=== PATIENT | female | born 1950 ===

== ENCOUNTER 2024-07-15 17:07 | Outpatient (REF) | payer MEDICARE, OTHER, SELFPAY ==
[2024-07-15 22:17] LABS: Abs Immature Grans 0.01 10^3/uL (0.0-0.06); Absolute Basophil Count 0.01 10^3/uL (0.0-0.2); Absolute Eosinophil Count 0.09 10^3/uL (0.0-0.7); Absolute Lymphocyte Count 1.15 10^3/uL (1.2-3.4); Absolute Monocyte Count 0.49 10^3/uL (0.1-0.8); Absolute Neutrophil Count 2.49 10^3/uL (1.2-6.7); Basophils % 0.2 %; Eosinophils % 2.1 %; HCT 39.8 % (36.0-46.0); HGB 13.6 g/dL (11.2-15.7); Immature Grans % 0.2 %; Lymphocytes % 27.1 %; MCH 28.5 pg (27.0-33.0); MCHC 34.2 % (32.0-36.0); MCV 83 fL (80-95); MPV 11.7 fL (8.0-11.0); Monocytes % 11.6 %; Neutrophils % 58.8 %; Platelet Count 223 10^3/uL (130-400); RBC 4.78 10^6/uL (3.93-5.22); RDW 13.3 % (11.7-14.6); RDW-SD 40.7 fL; WBC 4.24 10^3/uL (4.4-10.8)
[2024-07-15 22:35] LABS: ALT 16 U/L (14-59); AST 21 U/L (15-37); Albumin 3.2 g/dL (3.4-5.0); Alkaline Phosphatase 88 U/L (46-116); Anion Gap 11.1 mmol/L (3-11); BUN 7 mg/dL (7-18); Bilirubin, Total 0.33 mg/dL (0.2-1.0); CO2 23.9 mmol/L (21.0-32.0); CREATININE 0.7 mg/dL (0.55-1.02); Chloride 102 mmol/L (98-107); Glucose 111 mg/dL (74-106); Lipase 30 U/L (16-77); Potassium 3.3 mmol/L (3.5-5.1); Sodium 137 mmol/L (136-145); Total Protein 6.7 g/dL (6.4-8.2)
[2024-07-15 22:38] LABS: Calcium 8.1 mg/dL (8.5-10.1)
[2024-07-15 23:03] LABS: WBC Negative HPF (0-5)
[2024-07-15 23:04] LABS: Bacteria Negative HPF (Negative); C & S Indicated? No; Casts Negative LPF (Negative); Crystals Negative HPF (Negative); Epithelial Cells Negative HPF (Negative); Mucus Moderate (Negative); RBC 0-2 HPF (0-2)
== END 2024-07-15 17:08 | disposition home or self-care (01) ==
LOC: NCHCN 17:07
PROVIDERS: Visit Provider Physician Assistant
DX: R10.84 Generalized abdominal pain (principal)
CPT/HCPCS: 80053; 83690; 81015; 85025

== ENCOUNTER 2024-08-01 18:32 | Outpatient (REF) | payer MEDICARE, OTHER, SELFPAY ==
[2024-08-01 22:16] LABS: Anion Gap 7.1 mmol/L (3-11); BUN 9 mg/dL (7-18); CO2 27.9 mmol/L (21.0-32.0); CREATININE 0.7 mg/dL (0.55-1.02); Calcium 8.6 mg/dL (8.5-10.1); Chloride 104 mmol/L (98-107); Glucose 91 mg/dL (74-106); Potassium 3.8 mmol/L (3.5-5.1); Sodium 139 mmol/L (136-145)
[2024-08-04 11:52] LABS: IgA 139 mg/dL (85-499); Interpretation (See Note); Tissue Transglutaminase IgA <4.0 CU (<20.0)
== END 2024-08-01 18:33 | disposition home or self-care (01) ==
LOC: NCHCN 18:32
PROVIDERS: Visit Provider Internal Medicine
DX: R19.7 Diarrhea, unspecified (principal)
CPT/HCPCS: 80048; 82784; 83516

== ENCOUNTER 2024-08-04 16:24 | Outpatient (REF) | payer MEDICARE, OTHER, SELFPAY ==
--- OUTSIDE RECORDS SUMMARY | 2024-08-04 16:26 | XMS_ITS | Continuity of Care Document ---
Author Organization [facility] Address [address] [place] [address] Assessment No assessment recorded. Plan of Treatment Reminders Order Date Submit Date Provider Last Modified By Organization Details Last Modified Time Details Appointments Nurse Visit 024 11:45AM Not available Not available Not available Lab None recorde d. Referral None recorde d. Procedures None recorde d. Surgeries None recorde d. Imaging None recorde d. Medication Orders None recorde d. Patient TargetsNo targets recorded. Patient InstructionsNo instructions recorded. Reason for Referral None Reported. Results Created Date Observation Date Name Description Value Unit Range Abnormal Flag Note LastModifiedBy Organization Detail LastModifiedTime 08/01/20 24 08/01/2024 XR, abdom en, compl ete No observ ation record ed. [email or web address] Not Available 2023 10:36:57 08/03/20 24 08/25/2022 imagi ng/di agnos tic resul t No observ ation record ed. [email or web address] Not Available 08/03 22:51:36 Result Notes None recorded. 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 -rec low-sodi um diet and regular exercise -RTC when she is back in [place] in April, sooner prn. Problem Code: I10; Problem Code Type: ICD-10; MD Celina [address], [place] [address] , [facility] 4 13:48:57 Bone density finding 753769860 Active 2021 Problem Code: M85.80; Problem Code Type: ICD-10; MD Celina [address], [place] [address] , [facility] 4 13:48:57 Fatigue 20576971 Active 2021 Problem Code: R53.83; Problem Code Type: ICD-10; MD Celina [address], [place] [address] , [facility] 4 13:48:57 Cataract 859459386 Active 2021 Problem Code: H26.9; Problem Code Type: ICD-10; MD Celina [address], [place] [address] , [facility] 4 13:48:57 Hypergly cemia 88570443 Completed 202107/25/2022 07/18/20 22 - Comments only - Lenore Sabina ELECTRONIC WIRER - -glc of 113 in February 2022 -A1c today: 5.8% -- resulted after pt left. Called to discuss, rec we drawn venous A1c at next visit confirm diagnosi s of PreDM. -Art Psychotherapist Or Therapist ed on low carbohyd rate diet and exercise Problem Code: R73.9; Problem Code Type: ICD-10; Not Available [facility] 3 05:08:16 Major depressi on, single episode 44482465 Active 2022 Problem Code: F32.9; Problem Code Type: ICD-10; MD Celina [address]Z [address], [address] 4 13:48:57 History of polyp of colon 063418768 Active 2019 Problem Code: Z86.010; Problem Code Type: ICD-10; MD Celina [address]Z [address], [address] 4 13:48:57 Hip joint prosthes is present 765444933 Active 2017 Problem Code: Z96.642; Problem Code Type: ICD-10; MD Celina LOPEZ [address], [address] 4 13:48:57 Vitamin D deficien cy 19945952 Active 2017 Problem Code: E55.9; Problem Code Type: ICD-10; MD Celina LOPEZ Dr, [address] 4 13:48:57 Skin finding 551873163 Active 2017 Problem Code: R23.8; Problem Code Type: ICD-10; MD Celina [address], [place] [address] , [facility] 4 13:48:57 Screenin g for malignan t neoplasm of colon Active 2019 Problem Code: Z12.11; Problem Code Type: ICD-10; MD Celina L[address]Z [address], [address] 4 13:48:57 Dysthymi a 20095434 Active 201606/08/20 22 - Comments only - Lenore Sabina ELECTRONIC WIRER - -stable on citalopr am 20mg qd, rx renewed today Problem Code: F34.1; Problem Code Type: ICD-10; MD Celina [address], [place] [address] , [facility] 4 13:48:57 Insomnia 399603267 Active 2016 Problem Code: G47.00; Problem Code Type: ICD-10; MD Celina [address], [place] [address] , [facility] 4 13:48:57 Intolera nce to lactose 501148104 Active 2021 Problem Code: E73.9; Problem Code Type: ICD-10; MD Celina L[address]Z [address], [address] 4 13:48:57 Migraine 60513242 Active 2021 Problem Code: G43.909; Problem Code Type: ICD-10; MD Celina L[address], [address] 4 13:48:57 Osteoart hritis of multiple joints 487175001 Active 2021 Problem Code: M15.9; Problem Code Type: ICD-10; MD Celina LOPEZ [address], [address] 4 13:48:57 Eczema 77445563 Active 2021 Problem Code: L30.9; Problem Code Type: ICD-10; MD Celina L[address]Z Dr, [address] 4 13:48:57 Abnormal weight loss 616679520 Active 202107/18/20 22 - Comments only - Lenore Muhammad APRN - -wt up 0.4# since last visit -recheck again in 1 mo Problem Code: R63.4; Problem Code Type: ICD-10; MD Celina [address], [place], [address] , [facility] 4 13:48:57 Pain in right hip joint 52297034545 9102 Active 2021 Problem Code: M25.551; Problem Code Type: ICD-10; MD Celina [address], [facility] [address] , [facility] 4 13:48:57 Dysphoni a 01960687 Completed 201906/08/2022 Problem Code: R49.0; Problem Code Type: ICD-10; Not Available [facility] 3 05:08:18 Bone density finding 016007432 Completed 202107/18/2022 Problem Code: M85.9; Problem Code Type: ICD-10; MD Celina [address], [facility] [address] , [facility] 4 13:48:57 Shoulder joint pain 163659963 Completed 202106/08/2022 Problem Code: M25.519; Problem Code Type: ICD-10; Not Available [facility] 3 05:08:19 Elevated blood-pr essure reading without diagnosi s of hyperten negar 720581571 Completed 202107/18/2022 Problem Code: R03.0; Problem Code Type: ICD-10; Not Available [facility] 3 05:08:19 Problem Notes None recorded. Medical Equipment None Reported. Allergies Allergen ID Allergen Name Allergen Category Reaction Reaction Severity Criticality Documentation Date Start Date Code Code System Note Provider Name and Address Organization Details Recorded Time 69025 nickel environme nt,medica tion Not available Not available Not available 09/28/20232021 12349 29 RxNorm Not Available [facility] 3 16:22:08 08108 acetamino phen / oxycodone medicatio n anaphylax is Not available Not available 09/28/20232021 45418 3 RxNorm anaph ylaxi s Not Available [facility] 16:22:09 Medications Name Sig Start Date Stop Date Status Note LastModified by Organization Details LastModified Time estazolam 2 mg tablet Take 1 tablet by mouth once a day as needed 08/15 completed Not Available Not Available Not Available amlodipine 2.5 mg tablet TAKE 1 AND 1/2 TABLET BY MOUTH EVERY EVENING active Not Available Not Available No t Available citalopram 20 mg tablet TAKE 1 TABLET BY MOUTH EVERY DAY active Not Available Not Available No t Available betamethas one dipropiona te 0.05 % topical cream Apply to skin twice a day for 7-10 days 07/04 completed Not Available Not Available Not Available Multivitam in 50 Plus tablet Take 1 tablet by mouth once a day active Not Available Not Available No t Available ADVANCED Calcium 200 mg calcium-20 0 unit tablet 05/23 completed pt no longer takes. Not Available Not Available Not Available Vitals None Recorded Social History Question Answer Notes LastModified by Organizat ion Details LastModified Time Tobacco Smoking Status Former Smoker MILVIA MCNEILL LPN null, [place] - [facility] 05/23/2024 11:05:45 When Did You Quit Smoking? 16+yearssinc elastcigaret te [email or web address] Information not available 05/23/2024 What Was The Date Of Your Most Recent Tobacco Screening? 08/01/2024 [email or web address] Information not available 08/01/2024 Sex: Female Functional Status None recorded. Mental Status None recorded. Family History Nothing Reported Notes:*Problem: Mother (d; 8 0)- Depressive Disorder, Acute Poliomyelitis, Malignant tumor of breast, acute hepatitis, malignant neoplasm of skin, gallstones Father (d; 86) - depressive disorder-bipolar, Alzheimer's Disease, pulmonary emphysems, cataract, alcohol abuse Maternal grandmother (d; 70) - tuberculosis Paternal grandmother (d; 60)- DM Maternal grandfather (d; 94)- maternal tumor of prostate Sister - Migraine Medical History No medical history recorded. Gynecological HistoryNo gynecological history recorded. Obstetrics History GPAL:G 0 P 0 0 0 0 Immunizations Vaccine Type Date Status Provider Name and Address Organization Details Recorded Time Td (adult), 5 Lf tetanus toxoid, preservative free, adsorbed 06/07/2023 completed Not Available [facility] 11/23/2023 19:34:48 zoster recombinant 09/06/[address] [facility] 11/23/2023 19:34:48 SARS-COV-2 (COVID-19) vaccine, UNSPECIFIED 01/24/2021 completed Not Available [facility] 11/23/2023 19:34:48 SARS-COV-2 (COVID-19) vaccine, UNSPECIFIED 04/06/2022 completed Not Available [facility] 11/23/2023 19:34:48 SARS-COV-2 (COVID-19) vaccine, UNSPECIFIED 07/24/2021 completed Not Available [facility] 11/23/2023 19:34:48 SARS-COV-2 (COVID-19) vaccine, UNSPECIFIED 10/12/2021 completed Not Available [facility] 11/23/2023 19:34:48 influenza, unspecified formulation 01/06/2020 completed Not Available [facility] 11/23/2023 19:34:48 influenza, unspecified formulation 09/19/2018 completed Not Available [facility] 11/23/2023 19:34:48 influenza, unspecified formulation 09/23/2020 completed Not Available [facility] 11/23/2023 19:34:48 influenza, unspecified formulation 11/11/2023 completed Not Available [facility] 11/23/2023 19:34:48 Past Encounters Encounter ID Performer Location Encounter Start Date Encounter Closed Date Diagnosis/Indication Diagnosis SNOMED-CT Code Diagnosis ICD10 Code [id number] KRISTIN ANN [address] [address] 07/15/2024 14:26:59 07/15/2024 15:09:51 Diarrhea 76937535 R19.7 Generalize d abdominal pain 182661720 R10.84 [id number] DORA HERNANDEZ MD [address] [address] 08/01/2024 13:22:20 08/01/2024 14:34:21 Abdominal pain 16523132 R10.9 Diarrhea 31172014 R19.7 [id number] RICHARD WALTON LPN [address] [address] 08/04/2024 11:54:06 08/04/2024 13:08:52 Health Concerns Section Related Observation LastModified by Organization Detai ls LastModified Time None Recorded Concern Status LastModified by Organization Details LastModified Time None Recorded Payers Encounter Date Sequence Insurance Name Policy Number Policy Thompson Covered Member ID Thompson Member ID Guarantor Name 08/04/2024 1 [place] [employer] Camila Clements [id number] Camila Clements 08/04/2024 2 [facility] (MEDICARE SUPPLEMENT) Camila Clements [id number] Camila Clements OBGyn Episode No OBEpisode recorded.
--- OUTSIDE RECORDS SUMMARY | 2024-08-04 16:26 | XMS_ITS | Data Portability ---
Author Organization [place] - [facility], [facility] Address [address] [place] [address] Assessment Encounter Date Assessment Date Assessment LastModified by Organization Details LastModified Time 05/23/2024 05/23/2024 Pt presents for right heel pain x 1 month. She is a seasonal resident here in [place] and is followed by her PCP in [place] for preventive care, and for HTN. [email or web address] Not available 05/23/2024 11:05:11 07/15/2024 07/15/2024 Pt with <72 hours of 1-3 episodes of watery diarrhea, associated with generalized abdominal pain. Pt appears fatigued, vitals normal, clinically hydrated. Will obtain labs due to pain and encouraged BRAT diet, fluids, electrolyte drinks, ice pops, ice chips, chicken broth. If not improving in another 36 hours RTC for re-eval. If diarrhea lasts over 7 days can consider stool testing. No empiric abx treatment, there are no red flag signs at this visit. ER for severe pain or dehydration. Monitor for blood in stool. [email or web address] Not available 07/17/2024 11:01:50 Plan of Treatment Reminders Order Date Submit Date Provider Last Modified By Organization Details Last Modified Time Details Appointments Nurse Visit 20 2023 11:45A M Not available Not available Not available Lab lipase, serum or plasma 2023 024 [facility] (Registration ), [address] [place] [address] [place], [address], 07/22/2024 07:11:14 CBC w/ auto diff 2023 024 [facility] (Registration ), [address] [place] [address] [facility] [place], [address], 07/15/2024 22:25:42 CMP, serum or plasma 2023 024 [facility] (Registration ), [address] [place] [address] [place], [address], 07/15/2024 22:42:40 urinalysi s, dipstick [address], [address] [facility], [place], [address], 07/15/2024 15:24:22 microscop ic method, urine 2023 024 [facility] (Registration ), [address] [place] [address] [place], [address], 07/15/2024 15:25:20 O&P (ova & parasites ), stool 2023 024 [facility] (Registration ), [address] [place] [address] [place], [address], 08/04/2024 12:55:22 BMP, serum or plasma 2023 024 [facility] (Registration ), [address] [place] [address] [place], [address], 08/01/2024 15:36:09 celiac disease comprehen sive panel, serum [email or web address] [facility] [address] [facility] (Registration ), [address] [place] [address] [place], [address], 08/01/2024 15:14:43 Referral None recorded. Procedures None recorded. Surgeries None recorded. Imaging XR, abdomen, complete - worsening abdominal pain and stool changes 2023 024 [facility] - Radiology, [address] [place] [address], [address], 08/01/2024 17:17:45 Medication Orders None recorded. Patient TargetsNo targets recorded. Patient Instructions Encounter Date Encounter Id Patient Instructions Last Modified By Organization Details Last Modified Time 05/23/2024 [id number] It was good to see you! I sent the xray order to [facility]. Call them at [phone] just to confirm they have room to see you when you plan to go down. Call us if you have not heard the result within a day. Take care! [email or web address] Not available 05/23/2024 11:27:47 08/01/2024 [id number] Start famotidine (pepcid) 20 mg twice a day Try metamcuil 1-2 teaspooons in a glass of water every night Not available 08/01/2024 14:14:17 Reason for Referral None Reported. Results Created Date Observation Date Name Description Value Unit Range Abnormal Flag Note LastModifiedBy Organization Detail LastModifiedTime 07/15/20 24 07/15/2024 COMPL ETE BLOOD COUNT W/DIF F WBC 4.24 10_3/ uL 4.4-10 .8 low Not Available [address] [place], [address] 07/15/2024 22:25:42 07/15/20 24 07/15/2024 COMPL ETE BLOOD COUNT W/DIF F RBC 4.78 10_6/ uL 3.93-5 .22 normal Not Available [address] [place], [address] 07/15/2024 22:25:42 07/15/2007/15/2024 COMPL ETE BLOOD COUNT W/DIF F HGB 13.6 g/dL 11.2-1 5.7 normal Not Available [address] [place], [address] 07/15/2024 22:25:42 07/15/20 24 07/15/2024 COMPL ETE BLOOD COUNT W/DIF F HCT 39.8 % 36.0-4 6.0 normal Not Available [address] [place], [address] 07/15/2024 22:25:42 07/15/20 24 07/15/2024 COMPL ETE BLOOD COUNT W/DIF F MCV 83 fL 80-95 normal Not Available [address] [place], [address] 07/15/2024 22:25:42 07/15/20 24 07/15/2024 COMPL ETE BLOOD COUNT W/DIF F MCH 28.5 pg 27.0-3 3.0 normal Not Available [address] [place], [address] 07/15/2024 22:25:42 07/15/20 24 07/15/2024 COMPL ETE BLOOD COUNT W/DIF F MCHC 34.2 % 32.0-3 6.0 normal Not Available [address] [place], [address] 07/15/2024 22:25:42 07/15/20 24 07/15/2024 COMPL ETE BLOOD COUNT W/DIF F RDW 13.3 % 11.7-1 4.6 normal Not Available [address] [place], [address] 07/15/2024 22:25:42 07/15/20 24 07/15/2024 COMPL ETE BLOOD COUNT W/DIF F platelet count 223 10_3/ uL 130-40 0 normal Not Available [address] [place], [address] 07/15/2024 22:25:42 07/15/20 24 07/15/2024 COMPL ETE BLOOD COUNT W/DIF F MPV 11.7 fL 8.0-11 .0 high Not Available [address] [place], [address] 07/15/2024 22:25:42 07/15/20 24 07/15/2024 COMPL ETE BLOOD COUNT W/DIF F neutrophils % 58.8 % Not Available [address] [place], [address] 07/15/2024 22:25:42 07/15/20 24 07/15/2024 COMPL ETE BLOOD COUNT W/DIF F lymphocytes % 27.1 % Not Available [address] [place], [address] 07/15/2024 22:25:42 07/15/20 24 07/15/2024 COMPL ETE BLOOD COUNT W/DIF F monocytes % 11.6 % Not Available [address] [place], [address] 07/15/2024 22:25:42 07/15/20 24 07/15/2024 COMPL ETE BLOOD COUNT W/DIF F eosinophils % 2.1 % Not Available [address] [place], [address] 07/15/2024 22:25:42 07/15/20 24 07/15/2024 COMPL ETE BLOOD COUNT W/DIF F basophils % 0.2 % Not Available [address] [place], [address] 07/15/2024 22:25:42 07/15/20 24 07/15/2024 COMPL ETE BLOOD COUNT W/DIF F immature grans % 0.2 % Not Available [address] [place], [address] 07/15/2024 22:25:42 07/15/20 24 07/15/2024 COMPL ETE BLOOD COUNT W/DIF F nucleated RBC 0.0 % 0.0-0. 3 normal Not Available [address] [place], [address] 07/15/2024 22:25:42 07/15/20 24 07/15/2024 COMPL ETE BLOOD COUNT W/DIF F absolute neutrophil count 2.49 10_3/ uL 1.2-6. 7 normal Not Available [address] [place], [address] 07/15/2024 22:25:42 07/15/20 24 07/15/2024 COMPL ETE BLOOD COUNT W/DIF F absolute lymphocyte count 1.15 10_3/ uL 1.2-3. 4 low Not Available [address] [place], [address] 07/15/2024 22:25:42 07/15/20 24 07/15/2024 COMPL ETE BLOOD COUNT W/DIF F absolute monocyte count 0.49 10_3/ uL 0.1-0. 8 normal Not Available [address] [place], [address] 07/15/2024 22:25:42 07/15/20 24 07/15/2024 COMPL ETE BLOOD COUNT W/DIF F absolute eosinophil count 0.09 10_3/ uL 0.0-0. 7 normal Not Available [address] [place], [address] 07/15/2024 22:25:42 07/15/20 24 07/15/2024 COMPL ETE BLOOD COUNT W/DIF F absolute basophil count 0.01 10_3/ uL 0.0-0. 2 normal Not Available [address] [place], [address] 07/15/2024 22:25:42 07/15/20 24 07/15/2024 COMPR EHENS JOHNY METAB OLIC PANEL calcium 8.1 mg/dL 8.5-10 .1 low Not Available [address] [place], [address] 07/15/2024 22:42:39 07/15/20 24 07/15/2024 COMPR EHENS JOHNY METAB OLIC PANEL glucose 111 mg/dL 74-106 high Not Available Thad [address] [place], [address] 07/15/2024 22:42:39 07/15/20 24 07/15/2024 COMPR EHENS JOHNY METAB OLIC PANEL BUN 7 mg/dL 7-18 normal Not Available Thad [address] [place], [address] 07/15/2024 22:42:39 07/15/20 24 07/15/2024 COMPR EHENS JOHNY METAB OLIC PANEL creatinine 0.7 mg/dL 0.55-1 .02 normal Not Available [address] [place], [address] 07/15/2024 22:42:39 07/15/20 24 07/15/2024 COMPR EHENS JOHNY METAB OLIC PANEL estimated GFR 90.70 mL/min /1.73m 2 The eGFR is calcu lated from a serum creat inine using the CKD-E PI 2020 equat ion. Other varia bles requi red for the equat ion are gende r and age; this equat ion does not inclu de a race coeff icien t. This equat ion has simil ar overa ll perfo rmanc e to previ ous equat ions excep t value s may diffe r, in parti cular , in patie nts with highe r value s of eGFR and young er-ag ed adult s. Not Available [address] [place], [address] 07/15/2024 22:42:39 07/15/20 24 07/15/2024 COMPR EHENS JOHNY METAB OLIC PANEL total protein 6.7 g/dL 6.4-8. 2 normal Not Available [address] [place], [address] 07/15/2024 22:42:39 07/15/20 24 07/15/2024 COMPR EHENS JOHNY METAB OLIC PANEL albumin 3.2 g/dL 3.4-5. 0 low Not Available [address] [place], [address] 07/15/2024 22:42:39 07/15/20 24 07/15/2024 COMPR EHENS JOHNY METAB OLIC PANEL bilirubin, total 0.33 mg/dL 0.2-1. 0 normal Not Available [address] [place], [address] 07/15/2024 22:42:39 07/15/20 24 07/15/2024 COMPR EHENS JOHNY METAB OLIC PANEL alk phos 88 U/L 46-116 normal Not Available [address] [place], [address] 07/15/2024 22:42:39 07/15/20 24 07/15/2024 COMPR EHENS JOHNY METAB OLIC PANEL sodium 137 mmol/ L 136-14 5 normal Not Available [address] [place], [address] 07/15/2024 22:42:39 07/15/20 24 07/15/2024 COMPR EHENS JOHNY METAB OLIC PANEL potassium 3.3 mmol/ L 3.5-5. 1 low Not Available [address] [place], [address] 07/15/2024 22:42:39 07/15/20 24 07/15/2024 COMPR EHENS JOHNY METAB OLIC PANEL chloride 102 mmol/ L 98-107 normal Not Available [address] [place], [address] 07/15/2024 22:42:39 07/15/20 24 07/15/2024 COMPR EHENS JOHNY METAB OLIC PANEL CO2 23.9 mmol/ L 21.0-3 2.0 normal Not Available [address] [place], [address] 07/15/2024 22:42:39 07/15/20 24 07/15/2024 COMPR EHENS JOHNY METAB OLIC PANEL anion gap 11.1 mmol/ L 3-11 high Not Available [address] [place], [address] 07/15/2024 22:42:39 07/15/20 24 07/15/2024 COMPR EHENS JOHNY METAB OLIC PANEL AST 21 U/L 15-37 normal Not Available Thad connor [address] [place], [address] 07/15/2024 22:42:39 07/15/20 24 07/15/2024 COMPR EHENS JOHNY METAB OLIC PANEL ALT 16 U/L 14-59 normal Not Available Thad connor [address] [place], [address] 07/15/2024 22:42:39 07/15/2007/15/2024 LIPAS E lipase 30 U/L 16-77 normal Not Available Thad connor [address] [place], [address] 07/15/2024 22:42:40 07/15/20 24 07/15/2024 MICRO SCOPI C FINDI NGS WBC Negati ve hpf 0-5 Not Available Seth vann [address] [place], [address] 07/16/2024 06:12:38 07/15/20 24 07/15/2024 MICRO SCOPI C FINDI NGS RBC 0-2 hpf 0-2 Not Available Thad connor [address] [place], [address] 07/16/2024 06:12:38 07/15/20 24 07/15/2024 MICRO SCOPI C FINDI NGS epithelial cells Negati ve hpf negati ve Not Available [address] [place], [address] 07/16/2024 06:12:38 07/15/20 24 07/15/2024 MICRO SCOPI C FINDI NGS bacteria Negati ve hpf negati ve Not Available [address] [place], [address] 07/16/2024 06:12:38 07/15/20 24 07/15/2024 MICRO SCOPI C FINDI NGS crystals Negati ve hpf negati ve Not Available [address] [place], [address] 07/16/2024 06:12:38 07/15/20 24 07/15/2024 MICRO SCOPI C FINDI NGS mucus Modera te negati ve Not Available [address] [place], [address] 07/16/2024 06:12:38 07/15/20 24 07/15/2024 MICRO SCOPI C FINDI NGS casts Negati ve lpf negati ve Not Available [address] [place], [address] 07/16/2024 06:12:38 07/15/20 24 07/15/2024 MICRO SCOPI C FINDI NGS C S indicated? No Not Available [address] [place], [address] 07/16/2024 06:12:38 07/15/20 24 07/15/2024 urina lysis , dipst ick Leukocytes Negati ve Not Available [address], [place], [address], 07/15/2024 14:52:40 07/15/20 24 07/15/2024 urina lysis , dipst ick Nitrite negati ve Not Available [address], [address], 07/15/2024 14:52:40 07/15/20 24 07/15/2024 urina lysis , dipst ick Urobilinogen .2 Not Available [address], [address], 07/15/2024 14:52:40 07/15/20 24 07/15/2024 urina lysis , dipst ick Protein Negati ve Not Available [address], [address], 07/15/2024 14:52:40 07/15/20 24 07/15/2024 urina lysis , dipst ick pH 6.5 Not Available [address], [address], 07/15/2024 14:52:40 07/15/20 24 07/15/2024 urina lysis , dipst ick Blood Small Not Available [address], [address], 07/15/2024 14:52:40 07/15/20 24 07/15/2024 urina lysis , dipst ick Specific [place] 1.000 Not Available [address], [address], 07/15/2024 14:52:40 07/15/20 24 07/15/2024 urina lysis , dipst ick Ketone Negati ve Not Available [address], [address], 07/15/2024 14:52:40 07/15/20 24 07/15/2024 urina lysis , dipst ick Bilirubin Negati ve Not Available [address], [address], 07/15/2024 14:52:40 07/15/20 24 07/15/2024 urina lysis , dipst ick Glucose Negati ve Not Available [address], [address], 07/15/2024 14:52:40 07/15/20 24 07/15/2024 urina lysis , dipst ick Appearance Clear Not Available [address], [address], 07/15/2024 14:52:40 07/15/20 24 07/15/2024 urina lysis , dipst ick Color Yellow Not Available [address], [address], 07/15/2024 14:52:40 08/01/20 24 08/01/2024 XR ABDOM EN 1V xr abdomen 1V COPLE Y [facility] [place] [id number] RADIO LOGY TRANS CRIPT ION REPOR T ____ Patie nt Name: Daisy DAVIS COLLETTE MRN: Sex: : Age: [birth year] 6 F [birth year] Accou nt: Acces negar: Admit : StayT ype: [id number] 2023 O Order ed: Order ID: Submi tted: Order ing Provi luis antonio: 08/01 15:20 [id number] KT LANDR EY,AL FELISHA Compl eted: Techn ologi st: Resul natalie: 08/01 15:11 MG 08/01 16:11 ____ EXAMI NATIO N: XR ABDOM EN 1V CLINI KOSTAS HISTO RY: Reaso n for Abdom en: Abdom inal Pain Add'l Info: STOOL MATHUR ES TECHN IQUE: AP supin e view of the abdom en KIM RISON : None FINDI NGS: Air with minim al feces is demon strat ed in the colon with no abnor mal dilat ation . No signi fican t findi ng is seen in the small bowel . No mass is visua lized . Degen erati ve disea se is demon strat ed in the spine . IMPRE SSION : No activ e disea se in the abdom en. Thank you for abelardo ng us parti cipat e in the care of this patie nt. If you are a healt h care provi luis antonio and have any quest ions regar ding this repor t, pleas e conta ct the numbe r below . For patie nts who have quest ions pleas e conta ct the healt h care profe ssion al that reque sted your imagi ng first . Elect irlanda collazo ej d by: Gerardo Medeiros MD Radio log[employer] [place] on [phone]), at 2023 4:11 PM Not Available [facility] (Lab) [address] [place] [address], [address], 08/01/2024 16:17:56 08/01/20 24 08/01/2024 BASIC METAB OLIC PANEL calcium 8.6 mg/dL 8.5-10 .[address] [facility] [address] [place] [address] [place], [address] 08/01/2024 22:18:34 08/01/20 24 08/01/2024 BASIC METAB OLIC PANEL glucose 91 mg/dL 74-106 normal Not Available Thad connor [address] [place], [address] 08/01/2024 22:18:34 08/01/20 24 08/01/2024 BASIC METAB OLIC PANEL BUN 9 mg/dL 7-18 normal Not Available Thad connor [address] [place], [address] 08/01/2024 22:18:34 08/01/20 24 08/01/2024 BASIC METAB OLIC PANEL creatinine 0.7 mg/dL 0.55-1 .02 normal Not Available [address] [place], [address] 08/01/2024 22:18:34 08/01/20 24 08/01/2024 BASIC METAB OLIC PANEL estimated GFR 90.70 mL/min /1.73M 2 The eGFR is calcu lated from a serum creat inine using the CKD-E PI 2020 equat ion. Other varia bles requi red for the equat ion are gende r and age; this equat ion does not inclu de a race coeff icien t. This equat ion has simil ar overa ll perfo rmanc e to previ ous equat ions excep t value s may diffe r, in parti cular , in patie nts with highe r value s of eGFR and young er-ag ed adult s. Not Available [address] [place], [address] 08/01/2024 22:18:34 08/01/20 24 08/01/2024 BASIC METAB OLIC PANEL sodium 139 mmol/ L 136-14 5 normal Not Available [address] [place], [address] 08/01/2024 22:18:34 08/01/20 24 08/01/2024 BASIC METAB OLIC PANEL potassium 3.8 mmol/ L 3.5-5. 1 normal Not Available [address] [place], [address] 08/01/2024 22:18:34 08/01/20 24 08/01/2024 BASIC METAB OLIC PANEL chloride 104 mmol/ L 98-107 normal Not Available [address] [place], [address] 08/01/2024 22:18:34 08/01/20 24 08/01/2024 BASIC METAB OLIC PANEL CO2 27.9 mmol/ L 21.0-3 2.0 normal Not Available [address] [place], [address] 08/01/2024 22:18:34 08/01/20 24 08/01/2024 BASIC METAB OLIC PANEL anion gap 7.1 mmol/ L 3-11 normal Not Available [address] [place], [address] 08/01/2024 22:18:34 08/01/20 24 08/04/2024 LAINE C DISEA SE PANEL IgA 139 mg/dL 85-499 Not Available Thad connor [address] [place], [address] 08/04/2024 15:02:37 08/01/20 24 08/04/2024 LAINE C DISEA SE PANEL tissue transglutami nase IgA <4.0 cu <20.0 A negat johny resul t may be due to IgA defic iency and does not rule out laine c disea se. E X09 E E X09 E Negat johny: <20.0 CU E X09 E E X09 E Weak Posit johny: 20.0- 30.0 CU E X09 E E X09 E Posit johny: >30.0 CU Resul ts were obtai jm with the [place] n QUANT A Flash h-tTG IgA chemi lumin escen t immun oassa y. Value s obtai jm with diffe rent manuf actur ers' assay metho ds may not be used inter mathur eably . Not Available [address] [place], [address] 08/04/2024 15:02:37 08/01/20 24 08/04/2024 LAINE C DISEA SE PANEL interpretati on (See Note) Resul t: Negat johny Serol ogy. Laine c disea se unlik vicki. Appro ximat vicki 10% of patie nts with laine c disea se are seron egati ve. Patie nts who are alrea dy adher ing to a glute n-froy e diet may also be seron egati ve. If laine c disea se is highl y clini jay suspe cted, refer ral to gastr oente rolog y for addit ional evalu ation is recom ran d. Test perfo rmed or refer red by [facility] [address], [place] [address] [facility] [address] , [place], [address] 08/04/2024 15:02:37 08/01/20 24 08/01/2024 XR, abdom en, compl [...] Details Recorded Time Tear film insuffic iency 15913550 Active 202106/08/20 22 - Comments only - Lenore Sabina POLITICAL CONSULTANT - -encoura ged pt to f/u with eye doctor to address Problem Code: H04.129; Problem Code Type: ICD-10; DORA HERNANDEZ MD [address], [place], [address] , [place] - [facility] 13:48:57 [facility] l hyperten negar 16753666 Active 202108/15/20 22 - Comments only - Lenore Sabina POLITICAL CONSULTANT - -BP improved on amlodipi ne 2.5mg -- taken in the evening. -rec low-sodi um diet and regular exercise -RTC when she is back in [place] in April, sooner prn. Problem Code: I10; Problem Code Type: ICD-10; MD [address]ina [address], [place] [address] , [facility] 4 13:48:57 Bone density finding 429040875 Active 2021 Problem Code: M85.80; Problem Code Type: ICD-10; MD [address]ina [address], [place] [address] , [facility] 4 13:48:57 Fatigue 54105547 Active 2021 Problem Code: R53.83; Problem Code Type: ICD-10; MD [address]ina [address], [place] [address] , [facility] 4 13:48:57 Cataract 760978428 Active 2021 Problem Code: H26.9; Problem Code Type: ICD-10; MD Celina [address], [place] [address] , [facility] 4 13:48:57 Hypergly cemia 73057746 Completed 202107/25/2022 07/18/20 - Comments only - Lenore Muhammad APRN - -glc of 113 in February 2022 -A1c today: 5.8% -- resulted after pt left. Called to discuss, rec we drawn venous A1c at next visit confirm diagnosi s of PreDM. 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 Problem Code: R73.9; Problem Code Type: ICD-10; Not Available [facility] 3 05:08:16 Major depressi on, single episode 85956739 Active 2022 Problem Code: F32.9; Problem Code Type: ICD-10; MD Celina [address], [place] [address] , [facility] 4 13:48:57 History of polyp of colon 993101653 Active 2019 Problem Code: Z86.010; Problem Code Type: ICD-10; MD Celina [address], [place] [address] , [facility] 4 13:48:57 Hip joint prosthes is present 642832606 Active 2017 Problem Code: Z96.642; Problem Code Type: ICD-10; MD Celina [address], [place] [address] , [facility] 4 13:48:57 Vitamin D deficien cy 54337241 Active 2017 Problem Code: E55.9; Problem Code Type: ICD-10; MD Celina [address], [address] 4 13:48:57 Skin finding 640566835 Active 2017 Problem Code: R23.8; Problem Code Type: ICD-10; MD Celina [address], [place] [address] , [facility] 4 13:48:57 Screenin g for malignan t neoplasm of colon Active 2019 Problem Code: Z12.11; Problem Code Type: ICD-10; MD Celina [address], [address] 4 13:48:57 Dysthymi a 32525423 Active 201606/08/20 22 - Comments only - Lenore Sabina POLITICAL CONSULTANT - -stable on citalopr am 20mg qd, rx renewed today Problem Code: F34.1; Problem Code Type: ICD-10; MD Celina [address], [place] [address] , [facility] 4 13:48:57 Insomnia 871177734 Active 2016 Problem Code: G47.00; Problem Code Type: ICD-10; MD Celina [address], [place] [address] , [facility] 4 13:48:57 Intolera nce to lactose 628625446 Active 2021 Problem Code: E73.9; Problem Code Type: ICD-10; MD Celina [address], [address] 13:48:57 Migraine 54469773 Active 2021 Problem Code: G43.909; Problem Code Type: ICD-10; MD Celina [address], [address] 13:48:57 Osteoart hritis of multiple joints 097394121 Active 2021 Problem Code: M15.9; Problem Code Type: ICD-10; MD Celina [address], [address] 4 13:48:57 Eczema 97004620 Active 2021 Problem Code: L30.9; Problem Code Type: ICD-10; MD Celina [address], [address] 13:48:57 Abnormal weight loss 517297935 Active 202107/18/20 22 - Comments only - Lenore Muhammad APRN - -wt up 0.4# since last visit -recheck again in 1 mo Problem Code: R63.4; Problem Code Type: ICD-10; MD Celina [address], [address] 4 13:48:57 Pain in right hip joint 43795266675 9102 Active 2021 Problem Code: M25.551; Problem Code Type: ICD-10; MD Celina [address], [place], [address] , [facility] 4 13:48:57 Dysphoni a 46460899 Completed 201906/08/2022 Problem Code: R49.0; Problem Code Type: ICD-10; Not Available [facility] 3 05:08:18 Bone density finding 554497348 Completed 202107/18/2022 Problem Code: M85.9; Problem Code Type: ICD-10; DORA HERNANDEZ MD [address], [facility] [address] [facility] 4 13:48:57 Shoulder joint pain 966626554 Completed 202106/08/2022 Problem Code: M25.519; Problem Code Type: ICD-10; Not Available [facility] 3 05:08:19 Elevated blood-pr essure reading without diagnosi s of hyperten negar 313921507 Completed 202107/18/2022 Problem Code: R03.0; Problem Code Type: ICD-10; Not Available [facility] 3 05:08:19 Problem Notes None recorded. Procedures Surgical History None recorded. Imaging Results Imaging Date Name Status LastModified by Organiz ation Details LastModified Time 08/01/2024 XR, abdomen, complete completed Information not available 08/03/2024 10:36:57 08/25/2022 imaging/diagn ostic result completed [email or web address] Information not available 08/03/2024 22:51:36 Procedure Notes None recorded. Medical Equipment None Reported. Allergies Allergen ID Allergen Name Allergen Category Reaction Reaction Severity Criticality Documentation Date Start Date Code Code System Note Provider Name and Address Organization Details Recorded Time 44876 nickel environme nt,medica tion Not available Not available Not available 09/28/20232021 12737 29 RxNorm Not Available [facility] 3 16:22:08 41880 acetamino phen / oxycodone medicatio n anaphylax is Not available Not available 09/28/20232021 84872 3 RxNorm anaph ylaxi s Not Available [facility] 3 16:22:09 Medications Name Sig Start Date Stop [...] Not Available Not Available Not Available Vitals Date Recorded Body height Body mass index (BMI) Body weight Body temperature Oxygen saturation Oxygen saturation in Arterial blood by Pulse oximetry Heart rate Systolic blood pressure Diastolic blood pressure Provider Name and Address Organization Details Last Updated DateTime 4 158.75 cm 19.3 kg/m2 76952.3 8 g 97.9 [degF] 97 % 97 % 72 /min 114 mm[Hg] 70 mm[Hg] MILVIA MCNEILL [employer] [facility] 4 11:04:18 Date Recorded Body height Body mass index (BMI) Body weight Body temperature Oxygen saturation Oxygen saturation in Arterial blood by Pulse oximetry Heart rate Systolic blood pressure Diastolic blood pressure Provider Name and Address Organization Details Last Updated DateTime 4 158.75 cm 18.7 kg/m2 99213.3 1 g 98.4 [degF] 97 % 97 % 78 /min 116 mm[Hg] 72 mm[Hg] MILVIA MCNEILL [employer] [facility] 4 14:35:54 Date Recorded Body height Body mass index (BMI) Body weight Body temperature Oxygen saturation Oxygen saturation in Arterial blood by Pulse oximetry Heart rate Systolic blood pressure Diastolic blood pressure Provider Name and Address Organization Details Last Updated DateTime 4 158.75 cm 18.7 kg/m2 61643.6 1 g 98.2 [degF] 97 % 97 % 76 /min 122 mm[Hg] 70 mm[Hg] Magy Delgado LPN [facility] 13:41:53 Social History Question Answer Notes LastModified by Organizat ion Details LastModified Time Tobacco Smoking Status Former Smoker MILVIAAdi MCNEILL LPN null, [facility] 05/23/2024 11:05:45 When Did You Quit Smoking? 16+yearssinc elastcigaret te [email or web address] Information not available 05/23/2024 What Was The Date Of Your Most Recent Tobacco Screening? 08/01/2024 [email or web address] Information not available 08/01/2024 Sex: Female Functional [...] preservative free, adsorbed 06/07/2023 completed Not Available [facility] 11/23/2023 19:34:48 zoster recombinant 09/06/2020 completed Not Available [facility] 11/23/2023 19:34:48 SARS-COV-2 (COVID-19) vaccine, UNSPECIFIED 01/24/2021 completed Not Available [facility] 11/23/2023 19:34:48 SARS-COV-2 (COVID-19) vaccine, UNSPECIFIED 04/06/2022 completed Not Available [facility] 11/23/2023 19:34:48 SARS-COV-2 (COVID-19) vaccine, UNSPECIFIED 07/24/2021 completed Not Available [facility] 11/23/2023 19:34:48 SARS-COV-2 (COVID-19) vaccine, UNSPECIFIED 10/12/2021 completed Not Available [facility] 11/23/2023 19:34:48 influenza, unspecified formulation 01/06/2020 completed Not Available [facility] 11/23/2023 19:34:48 influenza, unspecified formulation 09/19/2018 completed Not Available [facility] 11/23/2023 19:34:48 influenza, unspecified formulation 09/23/2020 completed Not Available [facility] 11/23/2023 19:34:48 influenza, unspecified formulation 11/11/2023 completed Not Available [facility] 11/23/2023 19:34:48 Past Encounters Encounter ID Performer Location Encounter Start Date Encounter Closed Date Diagnosis/Indication Diagnosis SNOMED-CT Code Diagnosis ICD10 Code [id number] NATACHA HAYNES [address] [address] 05/23/2024 10:57:41 05/23/2024 11:37:47 Pain in right heel 1868159312 158474 M79.609 [id number] KASSIE CABRERA [address] [address] 07/15/2024 14:26:59 07/15/2024 15:09:51 Diarrhea 59234934 R19.7 Generalize d abdominal pain 691978023 R10.84 [id number] DORA HERNANDEZ MD [address] [address] 08/01/2024 13:22:20 08/01/2024 14:34:21 Abdominal pain 96371372 R10.9 Diarrhea 47077845 R19.7 [id number] RICHARD WALTON LPN [address] [address] 08/04/2024 11:54:06 08/04/2024 13:08:52 Health Concerns Section Related Observation LastModified by Organization Detai ls LastModified Time None Recorded Concern Status LastModified by Organization Details LastModified Time None Recorded Advance Directives Directive None Recorded Payers Encounter Date Sequence Insurance Name Policy Number Policy Thompson Covered Member ID Thompson Member ID Guarantor Name 05/23/2024 1 *SELF PAY* Ines Liu 07/15/2024 1 [place] [employer] Camila Ramosstein [id number] Camila Ramosstein 07/15/2024 2 [facility] (MEDICARE SUPPLEMENT) Camila Ramosstein [id number] Camila Ramosstein 08/01/2024 1 [place] [employer] Camila Ramosstein [id number] Camila Ramosstein 08/01/2024 2 [facility] (MEDICARE SUPPLEMENT) Camila Ramosstein [id number] Camila Ramosstein 08/04/2024 1 [place] [employer] Camila Ramosstein [id number] Camila Ramosstein 08/04/2024 2 [facility] (MEDICARE SUPPLEMENT) Camila Ramosstein [id number] Camila Clements Notes Date Note Type Note Provider Name and Address Organization Details Recorded Time 05/23/2024 text/html HPI Notes: CC: R heel pain Onset 1-2 month. Only occurs when barefoot. Pain is sharp - right over her heel. It is TTP and she feels there is a lump there. She thinks that she stepped on something when gardening. She is up to date on her tetanus. RAN card[place], [place] [facility]. 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 Sxs preceded by headache and body aches the day before. Pt state she is having 1-3 loose stools per day, or any time she tries to eat something. She has been having saltines and gingerale without relief. She endorses cramping with BM and generalized abdominal soreness. Endorses fatigue/malaise. Denies sore throat, nasal congestion, cough, sick contacts, questionable food ingestion. Denies blood in stool, black tarry stools, fever, vomiting, rash, extreme abdominal pain. [address], [place], [address], [facility]. 07/17/2024 11:12:02 08/01/2024 text/html HPI Notes: Here for acute abdominal pain x 1 week. Hortencia started with a headache 07/12, then had watery diarrhea for 4-5 days, she saw MO 07/15, she went on a bland diet plain rice, plain chicken, plain bread potatoes, boiled vegetables, and started to feel a bit better, the diarrhea resolved but then she thinks she advanced her diet too quickly, had steak, other richer foods, and started to have some diffuse low grade constant abdominal pain with radiation to the back a few days later, in the first week of july. This has not gone away, has been constant since then.Sticking with small portions of bland food still to avoid exacerbating the pain/diarrhea. That week she had daily formed BMs, small amount, had a slightly hard BM one day. One time had a loose stool. This morning she had watery stool again and was concerned about worsening, called for appt.This morning after the diarreha she had chicken broth and a small amount of rice No upper or lower respiratory symptoms. No fever/chills. She does feel bloated in the lower abdomen, at the end of the day abdomen looks distended. Has some off and on nausea, no emesis. She had some acid reflux/heartburn after eating applesauce this week also which is not typical for her. She is hydrating well/pushing fluids. She has felt fatigued and weak. Weight is unchanged. There is not a cramping quality to the pain, having a BM does not affect the pain. She has a history of lactose intolerance, does lactose-free yogurt this has not changed. she is on well water. No sick contacts. No family hx of colitis or celiac. No hx of gallbladder problems, had a colonoscopy 2 years ago, had polyps, on a 5 year schedule. MD [address], [place], [address], [facility]. 08/01/2024 16:00:43 OBGyn Episode No OBEpisode recorded.
--- OUTSIDE RECORDS SUMMARY | 2024-08-04 16:26 | XMS_ITS | Clinical Summary ---
Author Organization [facility] [place] [address] Care Team Providers Care Dispatch Manager Name Role Phone Unavailable Primary Care Provider Unavailabl e Encounters Date Type Department Care Team Description 08/01/2024 Interpretation Only [facility] in [address] [address] Dora Tanner MD from Last 3 Months Social History Tobacco Use Types Packs/Day Years Used Date Smoking Tobacco: Never Assessed Sex and Gender Information Value Date Recorded Sex Assigned at Not on file Gender Identity Not on file Sexual Orientation Not on file Plan of Treatment Health Maintenance Due Date Last Done Comments CT Colonography 1949 Colonoscopy 1949 Colorectal Cancer Screening 1949 FIT DNA 1949 FIT 1949 Sigmoidoscopy (10 year) with FIT yearly 1949 Sigmoidoscopy 1949 Hepatitis C Screening 1967 Tdap adult 1968 Tetanus vaccine 1968 Breast Cancer Share Decision Needed 1989 Breast Cancer screening 1989 Zoster vaccine (1 of 2) 1999 Advance Directive 2004 Bone Density Scan 2014 Pneumoccocal Vaccine: 65+ (1 of 1 - PCV) 2014 Covid-19 Vaccine (1 - season) 2024 Influenza (Flu) vaccine (1 o f 1 - Influenza standard series) 07/20/2024 Procedures Procedure Name Priority Date/Time Associated Diagnosis Comments XR ABDOMEN 1 VIEW STAT 08/01/2024 3:3 4 PM EDT from Last 3 Months Results * XR Abdomen 1 view (Generic) (08/01/2024 3:34 PM EDT) PT CLASS O DH RAD ADMITDTTM [id number] RAD PT RAD INFO [id number]^LANDRE Y^DORA^R RAD EXAM DESC XABD1^XR ABDOMEN 1V^RIS [facility] WORKSTATION ID [id number] [facility] Anatomical Region Laterality Modality Abdomen N/A Radiographic Brielle ging Impressions 08/01/2024 4:11 PM EDT No active disease in the abdomen. Thank you for letting us participate in the care of this patient. ??If you are a health care provider and have any questions regarding this report, please contact the number below. ??For patients who have questions please contact the health child caregiver that requested your imaging first. ? Narrative 08/01/2024 4:11 PM EDT EXAMINATION: XR ABDOMEN 1V CLINICAL HISTORY: ??Reason for Abdomen: ??Abdominal Pain ??Add'l Info: STOOL CHANGES TECHNIQUE: AP supine view of the abdomen COMPARISON: None FINDINGS: Air with minimal feces is demonstrated in the colon with no abnormal dilatation. No significant finding is seen in the small bowel. No mass is visualized. 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 Procedure Note Mahamed Medeiros MD - 08/01/2024 EXAMINATION: XR ABDOMEN 1V CLINICAL HISTORY: Reason for Abdomen: Abdominal Pain Add'l Info:STOOL CHANGES TECHNIQUE: AP supine view of the abdomen COMPARISON: None FINDINGS: Air with minimal feces is demonstrated in the colon with no abnormaldilatation. No significant finding is seen in the small bowel. No mass isvisualized. 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 IMPRESSION No active disease in the abdomen. Thank you for letting us participate in the care of this patient. If youare a health care provider and have any questions regarding this report,please contact the number below. For patients who have questions please contactthe health child caregiver that requested your imaging first. Dora Tanner MD IMG DX ORDERABLES from Last 3 Months
--- OUTSIDE RECORDS SUMMARY | 2024-08-04 16:26 | XMS_ITS | Encounter Summary ---
Author Organization [facility] [place] [address] Care Team Providers Care Nurse Charge Rn Name Role Phone Unavailable Primary Care Provider Unavailabl e Encounter Details Date Type Department Care Team (Late st Contact Info) Description 08/01/2024 Interpretation Only [facility] in [address] [address] Dora Tanner MD [address] [place] [address] [id number] Social History Tobacco Use Types Packs/Day Years Used Date Smoking Tobacco: Never Assessed Sex and Gender Information Value Date Recorded Sex Assigned at Not on file Gender Identity Not on file Sexual Orientation Not on file documented as of this encounter Plan of Treatment Not on file documented as of this encounter Procedures Procedure Name Priority Date/Time Associated Diagnosis Comments XR ABDOMEN 1 VIEW STAT 08/01/2024 3:3 4 PM EDT documented in this encounter Results * XR Abdomen 1 view (Generic) (08/01/2024 3:34 PM EDT) PT CLASS O RAD ADMITDTTM [id number] RAD PT RAD INFO [id number]^LANDRE Y^DORA^R RAD EXAM DESC XABD1^XR ABDOMEN 1V^RIS RAD WORKSTATION ID [id number] RAD Anatomical Region Laterality Modality Abdomen N/A Radiographic Brielle ging Impressions 08/01/2024 4:11 PM EDT No active disease in the abdomen. Thank you for letting us participate in the care of this patient. ??If you are a health care provider and have any questions regarding this report, please contact the number below. ??For patients who have questions please contact the health resident caregiver that requested your imaging first. ? Electronically signed by: Mahamed Medeiros MD, [facility] ([phone]), at 08/01/2024 4:11 PM Narrative 08/01/2024 4:11 PM EDT EXAMINATION: XR [...] patients who have questions please contactthe health resident caregiver that requested your imaging first. Electronically signed by: Mahamed Medeiros MD, [facility]([phone]), at 08/01/2024 4:11 PM Dora Tanner MD IMG DX ORDERABLES documented in this encounter Visit Diagnoses Not on filedocumented in this encounter
== END 2024-08-04 16:25 | disposition home or self-care (01) ==
LOC: NCHCN 16:24
PROVIDERS: Visit Provider Internal Medicine
DX: R19.7 Diarrhea, unspecified (principal)
CPT/HCPCS: 87177